=== PATIENT | female | born 1945 | race Caucasian/White ===

== ENCOUNTER 2021-02-26 11:04 | Inpatient (IN) | payer MEDICARE ==
[~2021-02-26] VITALS: Ht 162.6 cm; Wt 77.2 kg
[~2021-02-26 11:04] MED LIST: PLAVIX 75 MG TA75 MG PO
[2021-02-26] MEDS ORDERED: METOPROLOL SUCC50 MG PO (13:57)
[2021-02-26] MEDS ORDERED: ASPIRIN81 MG PO (13:57)
[2021-02-26] MEDS ORDERED: SYNTHROID112 MCG PO (13:58)
[2021-02-26] MEDS ORDERED: CETIRIZINE HCL10 MG PO (20:40)
[2021-02-26] MEDS ORDERED: IRBESARTAN300 MG PO (20:40)
[2021-02-26] MEDS ORDERED: VITAMIN D 40400 UNIT PO (20:40)
[2021-02-27 05:17] LABS: HEMOGLOBIN 10.6 gm/dl (12.3-15.3); RED BLOOD COUNT 4.13 M/UL (4.00-5.10); WHITE BLOOD COUNT 7.5 K/UL (4.5-11.0)
[2021-02-27 05:54] LABS: BUN/CREATININE RATIO 19 (0-10)
[2021-02-27] MEDS ORDERED: NORVASC2.5 MG PO (13:58)
[2021-02-27] MEDS ORDERED: CRESTOR5 MG PO (19:07)
[2021-02-27] MEDS ORDERED: FLONASE ALLER15.8 ML (19:08)
[2021-02-27] MEDS ORDERED: CO Q-10100 MG PO (19:08)
[2021-02-27] MEDS ORDERED: COMBIVENT RESPIM4 GM INH (19:09)
[2021-02-27] MEDS ORDERED: NAPROXEN500 MG PO (19:09)
[2021-02-28] MEDS ORDERED: ASPIRIN81 MG PO (10:29)
[2021-02-28] MEDS ORDERED: CLOPIDOGREL75 MG PO (10:29)
[2021-02-28] MEDS ORDERED: LEVOTHYROXINE112 MCG PO (10:29)
[2021-02-28] MEDS ORDERED: VALSARTAN80 MG PO (10:29)
[2021-02-28] MEDS ORDERED: NITROGLYCERIN0.4 MG SL (10:29)
[2021-02-28] MEDS ORDERED: METOPROLOL SUCC50 MG PO (10:29)
[2021-02-28] MEDS ORDERED: AMLODIPINE BESYL5 MG PO (10:29)
[2021-02-28] MEDS ORDERED: CRESTOR 10 MG T10 MG PO (10:29)
--- NOTE | 2021-02-28 11:15 | NUR ---
PATIENT IV DISCONTINUED. PATIENT UNDERSTANDING OF DISCHARGE TEACHING. THE PATIENT IS STABLE AND READY FOR DISCAHRGE. SON IS HERE FOR TRANSPORTATION HOME. PATIENT ESCORTED DOWN VIA WHEELCHAIR BY RN.
== END 2021-02-28 11:20 | disposition home or self-care (01) | DRG 247 ==
LOC: CCU 12:30
PROVIDERS: ADMIT Internal Medicine Interventional Cardiology
PROC: 027035Z Dilation of Coronary Artery, One Artery with Two Drug-eluting Intraluminal Devices, Percutaneous Approach (ICD-10-PCS; principal; 2021-02-26)
PROC: 4A023N7 Measurement of Cardiac Sampling and Pressure, Left Heart, Percutaneous Approach (ICD-10-PCS; 2021-02-26)
PROC: B2111ZZ Fluoroscopy of Multiple Coronary Arteries using Low Osmolar Contrast (ICD-10-PCS; 2021-02-26)
PROC: B24BZZZ Ultrasonography of Heart with Aorta (ICD-10-PCS; 2021-02-27)
DX: I21.09 ST elevation (STEMI) myocardial infarction involving other coronary artery of anterior wall (principal); I10 Essential (primary) hypertension; E78.5 Hyperlipidemia, unspecified; Z20.822 Contact with and (suspected) exposure to COVID-19; E03.9 Hypothyroidism, unspecified; E66.9 Obesity, unspecified; I25.10 Atherosclerotic heart disease of native coronary artery without angina pectoris; I27.20 Pulmonary hypertension, unspecified; E78.00 Pure hypercholesterolemia, unspecified; I08.2 Rheumatic disorders of both aortic and tricuspid valves; Z82.49 Family history of ischemic heart disease and other diseases of the circulatory system; Z79.01 Long term (current) use of anticoagulants; Z79.82 Long term (current) use of aspirin; Z98.891 History of uterine scar from previous surgery; Z95.1 Presence of aortocoronary bypass graft; Z68.29 Body mass index [BMI] 29.0-29.9, adult
CPT/HCPCS: ECHO; 36415; 80048; 82550; 82553; 84484; 85027; 93005; 93306; 99152; 99153; C1725; C1769; C1874; C1887; J0583; J2250; J3010; J7040; Q9965